=== PATIENT | female | born 1975 | race Caucasian/White ===

== ENCOUNTER 2022-01-05 17:40 | Outpatient (CLI) | payer OTHER | END 2022-01-05 17:41 | disposition short-term general hospital (02) | LOC: EMS 17:40 | DX: R55 Syncope and collapse (principal); R41.0 Disorientation, unspecified; R20.0 Anesthesia of skin; R06.02 Shortness of breath | CPT/HCPCS: A0425; A0429 ==

== ENCOUNTER 2022-11-28 15:56 | Emergency (ER) | payer OTHER ==
[2022-11-28] MEDS ORDERED: predniSONE 20 MG TABLET PO STA (17:00)
[2022-11-28] MEDS ORDERED: CETIRIZINE 10 MG TABLET PO STA (17:00)
--- NOTE | 2022-11-28 17:02 | ED Physician Documentation ---
PD HPI SKIN - Stated complaint Stated Complaint: BEE STING - Chief complaint Chief Complaint: Wound - History obtained from History obtained from: Patient - Additional information Additional information: Patient is a 47-year-old female presenting for evaluation of redness and swelling to the left wrist that has been present since being stung by an insect yesterday while she was working in her garden. She is unsure of what type of insect stung or bit her. She has been taking Benadryl and ibuprofen as well as applying steroid cream to the site without any significant improvement. She denies chest pain, shortness of breath or airway swelling. Denies reaction anywhere else. Review of Systems Constitutional: denies: Fever Cardiac: denies: Chest pain / pressure Respiratory: denies: Dyspnea GI: denies: Abdominal Pain Skin: reports: Rash PD PAST MEDICAL HISTORY - Present Medications Home Medications: Ambulatory Orders Medication Instructions Recorded Confirmed predniSONE [Deltasone] 40 mg PO DAILY 2 Days #4 tablet 11/28/22 - Allergies Allergies/Adverse Reactions: Allergies Allergy/AdvReac Type Severity Reaction Status Date / Time No Known Drug Allergies Allergy Verified 11/28/22 16:09 PD ED PE NORMAL - General General: Alert and oriented X 3, No acute distress, Well developed/nourished - HEENT HEENT: Atraumatic, Moist mucous membranes, Pharynx benign (No oral swelling, normal speech) - Neck Neck: Supple, no meningeal sign - Cardiac Cardiac: RRR, Strong equal pulses - Respiratory Respiratory: No respiratory distress, Clear bilaterally - Extremities Extremities: Other (Erythema and swelling to left wrist, not circumferential, no significant warmth, no fluctuance, no signs of retained stinger, good range of motion at left wrist,) - Neuro Neuro: Alert and oriented X 3, No motor deficit, No sensory deficit, Normal speech Results - Vitals Vitals: Vital Signs - 24 hr 11/28/22 11/28/22 16:02 17:11 Temperature 98.1 C H Heart Rate 101 H 99 Respiratory 15 16 Rate Blood Pressure 151/79 H 147/82 H O2 Saturation 100 100 Oxygen O2 Source Room air PD Medical Decision Making - ED course ED course: Patient presenting for evaluation of swelling and redness at site of insect sting or bite to left wrist. Vital signs are stable. No signs of airway compromise or anaphylaxis. She appears to be having a large localized reaction. Discussed options for treatment and patient is agreeable to 3-day course of prednisone in addition to continued Benadryl and cetirizine along with cold compresses. Patient is counseled on concerning symptoms to return for. Departure - Departure Disposition: 01 Home, Self Care Clinical Impression: Sting, insect, Allergic response Condition: Stable Instructions: ED Bite Sting Insect Local Allergic React Prescriptions: predniSONE [Deltasone] 40 mg PO DAILY 2 Days #4 tablet Comments: You appear to be having a large localized reaction to an insect bite or sting. I do not believe that this is an infection at this time. I am starting you on a short course of prednisone for 3 days and have sent this prescription to other drug in [place]. We have given you the first dose today and the next dose is due tomorrow. I would recommend continuing with Benadryl, cold compresses, elevation, anti-inflammatories. You can also use the Zyrtec 10 mg daily for the next several days to help with the immune response. Return to the ER if you develop any worsening symptoms. Forms: PCP List Discharge Date/Time: 11/28/22 17:15
[2022-11-28 17:18] VITALS: BP 147/82
== END 2022-11-28 17:15 | disposition home or self-care (01) ==
LOC: ED 15:56
DX: T63.481A Toxic effect of venom of other arthropod, accidental (unintentional), initial encounter (principal); R60.0 Localized edema; L53.9 Erythematous condition, unspecified; Y92.007 Garden or yard of unspecified non-institutional (private) residence as the place of occurrence of the external cause
CPT/HCPCS: 99282; 99283; A9270; J7512